=== PATIENT | female | born 1995 | race Caucasian/White ===

== ENCOUNTER 2019-07-22 13:10 | Inpatient (IN) ==
[2019-07-22] MEDS ORDERED: ceFAZolin 2,000 MG in PREMIX 1 EACH IV ONE (13:51)
[2019-07-22] MEDS ORDERED: CITRIC ACID/SODIUM CITRATE 30 ML UDCUP PO ONE (13:51)
[2019-07-22] MEDS ORDERED: FAMOTIDINE 20 MG/2 ML VIAL IV ONE (13:51)
[2019-07-22] MEDS ORDERED: OXYTOCIN 10 UNIT/ML VIAL IM ONE (13:53)
[2019-07-22] MEDS ORDERED: OXYTOCIN/LR 30 UNIT/1,000 ML BAG IV ONE (13:53)
[2019-07-22] MEDS ORDERED: LACTATED RINGERS 1,000 ML IV ONE (13:53)
[2019-07-22] MEDS ORDERED: LACTATED RINGERS 1,000 ML IV SCH ×2 (14:00→18:30)
[2019-07-22 14:19] LABS: Basophils % 0.4 % (0.0-0.8); Eosinophils # 0.2 10*3/uL (0.0-0.87); Eosinophils % 2.3 % (0.00-10.9); Hematocrit 33.8 VOL% (35.7-47.0); Hemoglobin 10.8 GM/DL (12.0-16.0); Immature Granulocytes % 0.4 %; Immature Granulocytes Absolute 0.04 #; Lymphocytes # 1.7 10*3/uL (1.4-4.0); Lymphocytes % 17.7 % (21.3-54.2); Mean Corpuscular Volume 95.8 FL (87-102); Mean Platelet Volume 11.3 FL (9.6-12.0); Monocytes % 9.2 % (1.7-12.7); Platelet Count 190 T/CUMM (130-400); Red Blood Count 3.53 MC/CUMM (3.8-5.5); Red Cell Distribution Width 13.3 % (9.3-17.3); White Blood Count 9.4 T/CUMM (4-12)
[2019-07-22 14:43] LABS: Albumin 2.6 G/DL (3.4-5.0); Bilirubin,Total 0.4 MG/DL (0.2-1.0); Calcium 9.1 MG/DL (8.5-10.1); Osmolality,Calculated 272.7 MOS/KG (273-304); Total Protein 6.8 G/DL (6.4-8.3)
[2019-07-22] MEDS ORDERED: PHENYLEPHRINE 1 MG/10 ML SYRINGE IV ONE (17:54)
[2019-07-22] MEDS ORDERED: ONDANSETRON 4 MG/2 ML VIAL ONE (17:54)
[2019-07-22] MEDS ORDERED: DEXAMETHASONE 4 MG/1 ML VIAL ONE (17:54)
[2019-07-22] MEDS ORDERED: ROPIVACAINE 0.5% 30 ML VIAL ONE (17:54)
[2019-07-22] MEDS ORDERED: BUPIVACAINE SPINAL 0.75% 2 ML AMP SPINAL ONE (17:54)
[2019-07-22] MEDS ORDERED: MORPHINE 10 MG/10 ML VIAL ONE (17:54)
[2019-07-22 18:17] LABS: Apearance,Urine CLEAR (Clear); Bilirubin,Urine Negative (Negative); Blood, Urine Negative (Negative); Glucose,Urine (UA) Negative (Negative); Ketones,Urine Negative (Negative); Nitrite,Urine Negative (Negative); Protein,Urine Negative; RBC,Urine <1 /HPF (0-4); Urine Color Colorless (Yellow); Urine Specific Gravity 1.005 (1.001-1.035); Urine Urobilinogen < 2.0 EU/DL (0.2-1.0)
[2019-07-22] MEDS ORDERED: OXYTOCIN/LR 20 UNIT/1,000 ML BAG IV ONE ×2 (18:19→22:30)
[2019-07-22] MEDS ORDERED: RHO(D) IMMUNE GLOBULIN 300 MCG SYRINGE IM ONE (18:19)
[2019-07-22] MEDS ORDERED: ONDANSETRON 4 MG/2 ML VIAL IV PRN (18:19)
[2019-07-22] MEDS ORDERED: ACETAMINOPHEN 325 MG TABLET PO PRN (18:19)
[2019-07-22 18:37] LABS: Cord Arterial Blood HCO3 20.7 MMOL/L
[2019-07-22 18:41] LABS: Cord Venous Blood HCO3 22.1 MMOL/L; Cord Venous Blood PCO2 40.3 MMHG; Cord Venous Blood PO2 31.8
[2019-07-22] MEDS: IBUPROFEN 800 MG TABLET PO PRN (22:51)
[2019-07-23] MEDS: ceFAZolin 1,000 MG in SYRINGE 1 EACH IV SCH ×2 (00:46→15:19)
[2019-07-23 03:02] LABS: Basophils % 0.1 % (0.0-0.8); Eosinophils % 0.1 % (0.00-10.9); Hematocrit 31.3 VOL% (35.7-47.0); Hemoglobin 10.3 GM/DL (12.0-16.0); Immature Granulocytes % 0.3 %; Immature Granulocytes Absolute 0.05 #; Lymphocytes # 1.1 10*3/uL (1.4-4.0); Lymphocytes % 7.4 % (21.3-54.2); Mean Corpuscular HGB Conc 32.9 GM/DL (32-36); Mean Corpuscular Volume 93.7 FL (87-102); Mean Platelet Volume 11.2 FL (9.6-12.0); Monocytes % 2.6 % (1.7-12.7); Neutrophils % 89.5 % (38.7-73.9); Platelet Count 175 T/CUMM (130-400); Red Blood Count 3.34 MC/CUMM (3.8-5.5); White Blood Count 15.3 T/CUMM (4-12)
[2019-07-23] MEDS: IBUPROFEN 800 MG TABLET PO PRN ×2 (09:12→16:24)
[2019-07-23] MEDS: SIMETHICONE CHEW 80 MG TABLET PO PRN (09:13)
[2019-07-23] MEDS: METOCLOPRAMIDE 10 MG TABLET PO PRN ×2 (09:13→17:03)
[2019-07-23] MEDS: MULTIVITAMIN (PRENATAL) TABLET PO SCH (09:13)
[2019-07-23] MEDS: DOCUSATE SODIUM 100 MG CAPSULE PO SCH ×2 (09:13→20:28)
[2019-07-23] MEDS: MAGNESIUM HYDROXIDE SUSP 30 ML UDCUP PO PRN (09:13)
[2019-07-23 10:16] LABS: Basophils % 0.1 % (0.0-0.8); Hematocrit 28.7 VOL% (35.7-47.0); Hemoglobin 9.5 GM/DL (12.0-16.0); Immature Granulocytes % 0.6 %; Immature Granulocytes Absolute 0.08 #; Lymphocytes # 1.2 10*3/uL (1.4-4.0); Lymphocytes % 8.8 % (21.3-54.2); Mean Corpuscular HGB Conc 33.1 GM/DL (32-36); Mean Corpuscular Volume 92.9 FL (87-102); Mean Platelet Volume 11.8 FL (9.6-12.0); Monocytes % 3.3 % (1.7-12.7); Neutrophils % 87.2 % (38.7-73.9); Platelet Count 181 T/CUMM (130-400); Red Blood Count 3.09 MC/CUMM (3.8-5.5); Red Cell Distribution Width 13.1 % (9.3-17.3); White Blood Count 13.6 T/CUMM (4-12)
[2019-07-24] MEDS: IBUPROFEN 800 MG TABLET PO PRN (08:36)
[2019-07-24] MEDS: DOCUSATE SODIUM 100 MG CAPSULE PO SCH (08:47)
[2019-07-24] MEDS: METOCLOPRAMIDE 10 MG TABLET PO PRN (08:48)
[2019-07-24] MEDS: MAGNESIUM HYDROXIDE SUSP 30 ML UDCUP PO PRN (08:48)
[2019-07-24] MEDS: SIMETHICONE CHEW 80 MG TABLET PO PRN (08:48)
[2019-07-24] MEDS: MULTIVITAMIN (PRENATAL) TABLET PO SCH (08:48)
[2019-07-24 11:56] VITALS: BP 97/56
== END 2019-07-24 15:25 | disposition home or self-care (01) | DRG 788 ==
LOC: N.LDOUT 13:10 → N.LD 13:15 → N.LDOUT 13:26 → N.LD 13:27 → N.OB 22:40
PROVIDERS: ADMIT Obstetrics & Gynecology; ATTEND Obstetrics & Gynecology
PROC: LDCSECT (ICD-10-PCS; 2019-07-22 14:30)

== ENCOUNTER 2020-11-27 10:25 | Inpatient (IN) ==
[2020-11-27] MEDS ORDERED: ceFAZolin 2,000 MG in PREMIX 1 EACH IV ONE (10:55)
[2020-11-27] MEDS ORDERED: FAMOTIDINE 20 MG/2 ML VIAL IV ONE (10:55)
[2020-11-27] MEDS ORDERED: CITRIC ACID/SODIUM CITRATE 30 ML UDCUP PO ONE (10:55)
[2020-11-27] MEDS ORDERED: LACTATED RINGERS 1,000 ML IV SCH ×2 (11:00→19:00)
[2020-11-27 11:04] LABS: Basophils % 0.1 % (0.0-0.8); Eosinophils # 0.1 10*3/uL (0.0-0.87); Eosinophils % 1.6 % (0.00-10.9); Hematocrit 38.4 VOL% (35.7-47.0); Hemoglobin 12.6 GM/DL (12.0-16.0); Immature Granulocytes % 0.5 %; Immature Granulocytes Absolute 0.04 #; Lymphocytes # 1.2 10*3/uL (1.4-4.0); Lymphocytes % 16.7 % (21.3-54.2); Mean Corpuscular HGB Conc 32.8 GM/DL (32-36); Mean Platelet Volume 11.8 FL (9.6-12.0); Monocytes % 7.8 % (1.7-12.7); Neutrophils % 73.3 % (38.7-73.9); Platelet Count 203 T/CUMM (130-400); Red Blood Count 4.13 MC/CUMM (3.8-5.5); Red Cell Distribution Width 14.5 % (9.3-17.3); White Blood Count 7.4 T/CUMM (4-12)
[2020-11-27 11:21] LABS: Albumin 3.1 G/DL (3.4-5.0); Bilirubin,Total 0.6 MG/DL (0.2-1.0); Calcium 9.4 MG/DL (8.5-10.1); Potassium 4.2 MMOL/L (3.5-5.1); Total Protein 7.3 G/DL (6.4-8.2)
[2020-11-27] MEDS ORDERED: LACTATED RINGERS 1,000 ML IV ONE (11:50)
[2020-11-27] MEDS ORDERED: OXYTOCIN/LR 30 UNIT/1,000 ML BAG IV ONE (12:21)
[2020-11-27] MEDS ORDERED: OXYTOCIN 10 UNIT/ML VIAL IM ONE (12:21)
[2020-11-27] MEDS ORDERED: BUPIVACAINE SPINAL 0.75% 2 ML AMP SPINAL ONE (17:25)
[2020-11-27] MEDS ORDERED: ONDANSETRON 4 MG/2 ML VIAL ONE (17:25)
[2020-11-27 18:12] LABS: Cord Arterial Blood HCO3 21.3 MMOL/L
[2020-11-27 18:14] LABS: Cord Venous Blood HCO3 23.2 MMOL/L; Cord Venous Blood PCO2 40.5 MMHG; Cord Venous Blood PO2 36.8
[2020-11-27 18:17] LABS: Bilirubin,Urine Negative (Negative); Blood, Urine Negative (Negative); Glucose,Urine (UA) Negative (Negative); Ketones,Urine 20 mg/dL (Negative); Mucus,Urine Occasional /LPF (Occasional); Nitrite,Urine Negative (Negative); Protein,Urine Negative; RBC,Urine <1 /HPF (0-4); Squamous Epithelial Cell,Urine Occasional /HPF (0-10); Urine Appearance CLEAR (Clear); Urine Color Yellow (Yellow); Urine Specific Gravity 1.019 (1.001-1.035); Urine Urobilinogen < 2.0 EU/DL (0.2-1.0)
[2020-11-27] MEDS ORDERED: PHENYLEPHRINE 1 MG/10 ML SYRINGE IV ONE (18:19)
[2020-11-27] MEDS ORDERED: ACETAMINOPHEN 325 MG TABLET PO PRN (18:41)
[2020-11-27] MEDS ORDERED: OXYTOCIN/LR 20 UNIT/1,000 ML BAG IV ONE (18:41)
[2020-11-27] MEDS ORDERED: RHO(D) IMMUNE GLOBULIN 300 MCG SYRINGE IM ONE (18:41)
[2020-11-27] MEDS ORDERED: SIMETHICONE CHEW 80 MG TABLET PO PRN (18:41)
[2020-11-27] MEDS ORDERED: ONDANSETRON 4 MG/2 ML VIAL IV PRN (18:41)
[2020-11-27] MEDS ORDERED: KETOROLAC 30 MG/1 ML VIAL IV SCH ×2 (19:00→23:00)
[2020-11-27] MEDS ORDERED: ACETAMINOPHEN 500 MG TABLET PO SCH (19:00)
[2020-11-27] MEDS ORDERED: ceFAZolin 1,000 MG in SYRINGE 1 EACH IV SCH (19:00)
[2020-11-27] MEDS: DOCUSATE SODIUM 100 MG CAPSULE PO SCH (20:45)
[2020-11-28] MEDS: KETOROLAC 30 MG/1 ML VIAL IV SCH ×2 (00:43→06:53)
[2020-11-28] MEDS: ACETAMINOPHEN 500 MG TABLET PO SCH ×2 (00:44→06:45)
[2020-11-28 05:51] LABS: Basophils % 0.3 % (0.0-0.8); Eosinophils # 0.1 10*3/uL (0.0-0.87); Eosinophils % 1.8 % (0.00-10.9); Hematocrit 31.5 VOL% (35.7-47.0); Hemoglobin 10.4 GM/DL (12.0-16.0); Immature Granulocytes % 0.4 %; Immature Granulocytes Absolute 0.03 #; Lymphocytes # 1.4 10*3/uL (1.4-4.0); Lymphocytes % 18.6 % (21.3-54.2); Mean Corpuscular Volume 92.1 FL (87-102); Mean Platelet Volume 12.2 FL (9.6-12.0); Monocytes % 8.1 % (1.7-12.7); Neutrophils % 70.8 % (38.7-73.9); Platelet Count 151 T/CUMM (130-400); Red Blood Count 3.42 MC/CUMM (3.8-5.5); Red Cell Distribution Width 14.6 % (9.3-17.3); White Blood Count 7.3 T/CUMM (4-12)
[2020-11-28] MEDS: MULTIVITAMIN (PRENATAL) TABLET PO SCH (10:11)
[2020-11-28] MEDS: DOCUSATE SODIUM 100 MG CAPSULE PO SCH ×2 (10:11→21:02)
[2020-11-28] MEDS: IBUPROFEN 800 MG TABLET PO PRN ×2 (15:55→23:30)
[2020-11-28] MEDS ORDERED: METOCLOPRAMIDE 10 MG TABLET ONE (23:29)
[2020-11-28] MEDS: METOCLOPRAMIDE 10 MG TABLET PO SCH (23:30)
[2020-11-28] MEDS: MAGNESIUM HYDROXIDE SUSP 30 ML UDCUP PO PRN (23:30)
[2020-11-29] MEDS: IBUPROFEN 800 MG TABLET PO PRN ×2 (07:55→17:35)
[2020-11-29] MEDS: METOCLOPRAMIDE 10 MG TABLET PO SCH ×2 (07:58→21:41)
[2020-11-29] MEDS: MULTIVITAMIN (PRENATAL) TABLET PO SCH (07:59)
[2020-11-29] MEDS: DOCUSATE SODIUM 100 MG CAPSULE PO SCH ×2 (07:59→21:40)
[2020-11-29] MEDS: MAGNESIUM HYDROXIDE SUSP 30 ML UDCUP PO PRN (10:52)
[2020-11-29] MEDS ORDERED: oxyCODONE/ACETAMINOPHEN 5-325 MG TABLET PO PRN (12:33)
[2020-11-29] MEDS: oxyCODONE/ACETAMINOPHEN 5-325 MG TABLET PO PRN (17:35)
[2020-11-30] MEDS: oxyCODONE/ACETAMINOPHEN 5-325 MG TABLET PO PRN (02:22)
[2020-11-30] MEDS: IBUPROFEN 800 MG TABLET PO PRN ×2 (02:22→10:51)
[2020-11-30] MEDS: METOCLOPRAMIDE 10 MG TABLET PO SCH ×2 (02:55→13:06)
[2020-11-30 07:36] VITALS: BP 107/68
[2020-11-30] MEDS ORDERED: DIPH/TET/ACEL PERT BOOSTER VACCINE 0.5 ML VIAL IM ONE (09:27)
[2020-11-30] MEDS: MULTIVITAMIN (PRENATAL) TABLET PO SCH (10:51)
[2020-11-30] MEDS: DOCUSATE SODIUM 100 MG CAPSULE PO SCH (10:51)
== END 2020-11-30 12:30 | disposition home or self-care (01) | DRG 788 ==
LOC: N.LD 10:25 → N.OB 21:50
PROVIDERS: ADMIT Obstetrics & Gynecology; ATTEND Obstetrics & Gynecology
PROC: LDCSECT (ICD-10-PCS; 2020-11-27 13:15)

== ENCOUNTER 2020-12-22 18:52 | Observation (INO) ==
[2020-12-22 20:40] LABS: Bilirubin,Urine Negative (Negative); Blood, Urine Large mg/dL (Negative); Glucose,Urine (UA) Negative (Negative); Ketones,Urine Negative (Negative); Nitrite,Urine Negative (Negative); Protein,Urine 30 MG/DL; RBC,Urine 523 /HPF (0-4); Squamous Epithelial Cell,Urine Occasional /HPF (0-10); Urine Appearance Slightly Hazy (Clear); Urine Color Yellow (Yellow); Urine Urobilinogen < 2.0 EU/DL (0.2-1.0)
[2020-12-22 22:08] LABS: Basophils % 0.5 % (0.0-0.8); Eosinophils # 0.7 10*3/uL (0.0-0.87); Eosinophils % 8.7 % (0.00-10.9); Hematocrit 42.6 VOL% (35.7-47.0); Hemoglobin 13.7 GM/DL (12.0-16.0); Immature Granulocytes % 0.4 %; Immature Granulocytes Absolute 0.03 #; Lymphocytes # 1.8 10*3/uL (1.4-4.0); Lymphocytes % 21.9 % (21.3-54.2); Mean Corpuscular HGB Conc 32.2 GM/DL (32-36); Mean Corpuscular Volume 92.4 FL (87-102); Mean Platelet Volume 10.9 FL (9.6-12.0); Monocytes % 4.6 % (1.7-12.7); Neutrophils % 63.9 % (38.7-73.9); Platelet Count 248 T/CUMM (130-400); Red Blood Count 4.61 MC/CUMM (3.8-5.5); Red Cell Distribution Width 13.8 % (9.3-17.3); White Blood Count 8.3 T/CUMM (4-12)
[2020-12-22 22:24] LABS: Albumin 3.5 G/DL (3.4-5.0); Bilirubin,Total 0.5 MG/DL (0.2-1.0); Calcium 9.3 MG/DL (8.5-10.1); Osmolality,Calculated 279.3 MOS/KG (273-304); Potassium 4.1 MMOL/L (3.5-5.1); Total Protein 7.6 G/DL (6.4-8.2)
[2020-12-23] MEDS ORDERED: MAGNESIUM SULF RIDER 1 GM/100 ML PREMIX IV STA ×2 (00:08)
[2020-12-23] MEDS ORDERED: cefTRIAXone 1,000 MG in SODIUM CHLORIDE 0.9% 100 ML IV STA (00:27)
[2020-12-23] MEDS ORDERED: MAGNESIUM SULF RIDER 2 GM/50 ML PREMIX IV ONE (00:30)
[2020-12-23] MEDS ORDERED: ONDANSETRON 4 MG/2 ML VIAL IV PRN (00:49)
[2020-12-23] MEDS ORDERED: ACETAMINOPHEN 500 MG TABLET PO PRN (08:33)
[2020-12-23] MEDS ORDERED: IBUPROFEN 800 MG TABLET PO PRN (08:33)
[2020-12-23 09:37] VITALS: BP 108/62
[2020-12-23] MEDS ORDERED: FLUoxetine 10 MG CAPSULE PO SCH (12:00)
[2020-12-23] MEDS ORDERED: FLUoxetine 20 MG CAPSULE PO SCH (13:00)
== END 2020-12-23 13:55 | disposition home or self-care (01) ==
LOC: N.EDINP 18:52 → N.ED 18:52 → N.OB 12-23 02:30
PROVIDERS: ADMIT Obstetrics & Gynecology; ATTEND Obstetrics & Gynecology